=== PATIENT | male | born 1965 | race Caucasian/White ===

== ENCOUNTER 2020-02-16 09:34 | Emergency (ER) | payer SELFPAY ==
[~2020-02-16] VITALS: Ht 170.2 cm; Wt 99.8 kg
--- NOTE | 2020-02-16 09:34 | NUR ---
Patient ambulated to bed 9. RN evaluating patient at bedside.
[2020-02-16 09:35] VITALS: BP 157/94
--- NOTE | 2020-02-16 09:39 | NUR ---
55 Y/O MALE FROM HOME C/O INTERMITTENT FEVER X 1 WK. DENIES COUGH/SOB. RR EVEN AND UNLABORED. DENIES PAIN. NO CHANGES IN APPETITE, NO N/V/D. HOB ELEVATED, POSITIONED FOR COMFORT. PLACED ON MONITOR. MEDHX: DENIES ALLERGIES: NKA
--- NOTE | 2020-02-16 10:07 | NUR ---
20G IV PLACED TO RT FOREARM, LABS AND CULTURES DRAWN AT THIS TIME
[2020-02-16 10:33] LABS: BASOPHILS # (AUTO) 0.1 K/uL (0.00-0.22); BASOPHILS % (AUTO) 0.7 % (0.0-2.0); EOSINOPHILS % (AUTO) 0.1 % (0.0-4.0); HEMATOCRIT 45.7 % (36-52); HEMOGLOBIN 15.5 g/dL (12.0-18.0); LYMPHOCYTES # (AUTO) 2.4 K/uL (2.0-11.5); LYMPHOCYTES % (AUTO) 23.3 % (20.5-51.1); MEAN CORPUSCULAR HEMOGLOBIN 31 pg (27-31); MEAN CORPUSCULAR HGB CONC 34 g/dL (33-37); MEAN CORPUSCULAR VOLUME 91.9 fL (80-94); MONOCYTES # (AUTO) 0.6 K/uL (0.8-1.0); MONOCYTES % (AUTO) 5.8 % (1.7-9.3); NEUTROPHILS # (AUTO) 7.1 K/uL (1.8-7.7); NEUTROPHILS % (AUTO) 70.1 % (42.2-75.2); PLATELET COUNT (AUTO) 298 K/uL (140-450); RED BLOOD CELL COUNT(AUTO) 4.97 MIL/uL (4.20-6.10); RED CELL DISTRIBUTION WIDTH 13.5 % (11.6-13.7); WHITE BLOOD COUNT (AUTO) 10.1 K/uL (4.8-10.8)
--- NOTE | 2020-02-16 10:33 | NUR ---
RADIOLOGY AT BEDSIDE
[2020-02-16 10:45] LABS: ALBUMIN 4.1 g/dL (3.4-5.0); CARBON DIOXIDE 24.5 mmol/L (21-32); POTASSIUM 3.5 mmol/L (3.5-5.1); TOTAL BILIRUBIN 0.5 mg/dL (0.0-1.0)
[2020-02-16 10:52] LABS: C-REACTIVE PROTEIN QUANT 0.4 mg/dL (0.0-0.9)
--- NOTE | 2020-02-16 10:56 | NUR ---
DR STEWART EXAMINING PT
[2020-02-16 10:57] LABS: CREATINE KINASE MB 0.5 ng/mL (0-3.6)
--- NOTE | 2020-02-16 10:59 | NUR ---
PT STATES HE WILL GIVE URINE IF HE HAS GLASS OF WATER. PT GIVEN WATER. WILL FOLLOW UP WITH COLLECTION OF URINE.
--- NOTE | 2020-02-16 12:04 | NUR ---
PT PROVIDED URINAL VIA BEDSIDE URINAL
--- NOTE | 2020-02-16 12:35 | NUR ---
PATIENT DISCHARGED HOME WITH PRESCRIPTION FOR FEVER, PT HAS NO SOB, NO PAIN. PATIENT'S LABS WNL, PATIENT GIVEN COPY OF COVID TESTING SITES IT SYPMTOMS PERSIST OR WORSEN OR HE DEVELOPS FATIGUE, COUGH, OR CONTINUED FEVER. PATIENT VERBALIZED UNDERSTANDING.
[2020-02-16 12:43] VITALS: BP 162/87
[2020-02-16 13:28] LABS: APPEARANCE,URINE CLEAR (CLEAR); BILIRUBIN,URINE NEGATIVE (NEGATIVE); BLOOD, URINE NEGATIVE (NEGATIVE); COLOR,URINE YELLOW (YELLOW); LEUKOCYTE ESTERASE ,URINE NEGATIVE (NEGATIVE); NITRITE, URINE NEGATIVE (NEGATIVE); UGLUCOSE NEGATIVE (NEGATIVE)
[2020-02-17 09:06] LABS: FERRITIN 241 ng/mL (30-400); LACTATE DEHYDROGENASE 131 IU/L (121-224)
[2020-02-19 06:07] LABS: LD1 FRACTION 21 % (17-32); LD2 FRACTION 36 % (25-40); LD3 FRACTION 23 % (17-27); LD4 FRACTION 11 % (5-13); LD5 FRACTION 9 % (4-20)
== END 2020-02-16 12:48 | disposition home or self-care (01) ==
LOC: EEVIPCON 09:34 → MED 09:34
DX: R50.9 Fever, unspecified (principal)
CPT/HCPCS: 36415; 71045; 80053; 81003; 82550; 82553; 82728; 83605; 83625; 83880; 84484; 85025; 85379; 86140; 87040; 99284; Q0092